=== PATIENT | male | born 1940 | race Caucasian/White ===

== ENCOUNTER 2019-10-18 14:16 | Outpatient (CLI) | payer MEDICARE ==
[~2019-10-18 14:16] MED LIST: ACET-1025 PO; ALPR-624 PO; ASPI-611 PO; BRIM5DRO2 LEFTEYE; DICL-194 PO; FLEC100T PO; FLO0.4C PO; LEVO125T68 PO; LISI-642 PO; METF500T20 PO; MULT-342 PO; OMEP20TA5 PO; POLY17PO10 PO; PSYL1PAC11 PO; SIMV-42 PO; fish oil PO
== END 2019-10-18 23:59 | disposition home or self-care (01) ==
LOC: VAS 14:16
PROVIDERS: ATTEND Pediatrics Sports Medicine
DX: R60.9 Edema, unspecified (principal); I10 Essential (primary) hypertension; E11.9 Type 2 diabetes mellitus without complications
CPT/HCPCS: 93970

== ENCOUNTER 2020-04-03 08:59 | Day surgery (SDC) | payer MEDICARE ==
[~2020-04-03] VITALS: Ht 172.7 cm; Wt 70.5 kg
[~2020-04-03 08:59] MED LIST changes: +METF-900 PO; -METF500T20 PO
[2020-04-03] MEDS ORDERED: fentaNYL/PF 50MCG/1 ML 2ML syringe ONE (09:04)
[2020-04-03] MEDS ORDERED: LIDOcaine Viscous 15ml cup ONE (09:04)
[2020-04-03] MEDS ORDERED: MIDAZolam 5mg/5ml vial ONE (09:04)
[2020-04-03 09:09] VITALS: BP 106/64
[2020-04-03] MEDS ORDERED: DAPA10TA PO (09:33)
[2020-04-03] MEDS ORDERED: GLIM2TAB6 PO (09:34)
[2020-04-03] MEDS ORDERED: ATOR40TA71 PO (09:35)
[2020-04-03] MEDS ORDERED: FINA5TAB11 PO (09:36)
[2020-04-03] MEDS ORDERED: GABA800T11 PO (09:37)
[2020-04-03] MEDS ORDERED: LATONOPROST EACHEYE (09:40)
[2020-04-03] MEDS ORDERED: CELE-193 PO (09:42)
[2020-04-03] MEDS ORDERED: DULO20CA50 PO (09:43)
[2020-04-03] MEDS ORDERED: VITC500T PO (09:45)
[2020-04-03] MEDS ORDERED: FAMO20TA8 PO (09:46)
[2020-04-03] MEDS ORDERED: FLUT16SP2 BOTHNARES (09:46)
[2020-04-03] MEDS ORDERED: CALCIUM PO (09:48)
[2020-04-03] MEDS ORDERED: CHOLECALCIFEROL PO (09:48)
[2020-04-03] MEDS ORDERED: MAGNESIUM PO (09:48)
[2020-04-03] MEDS ORDERED: ZINC PO (09:48)
[2020-04-03] MEDS ORDERED: OMEG1CAP PO (09:49)
[2020-04-03] MEDS ORDERED: [UNRECOGNIZED DRUG - OTHER] (09:50)
[2020-04-03] MEDS ORDERED: MAGN500P34 PO (09:51)
[2020-04-03] MEDS ORDERED: DOCU100C40 PO (09:53)
[2020-04-03 10:30] VITALS: BP 109/65
[2020-04-03 10:40] VITALS: BP 103/57
[2020-04-03 10:50] VITALS: BP 100/62
[2020-04-03 11:00] VITALS: BP 115/58
== END 2020-04-03 11:15 | disposition home or self-care (01) ==
LOC: GI LAB 08:59
PROVIDERS: ATTEND Internal Medicine Gastroenterology
DX: D50.0 Iron deficiency anemia secondary to blood loss (chronic) (principal); K44.9 Diaphragmatic hernia without obstruction or gangrene; K20.8 Other esophagitis; K29.50 Unspecified chronic gastritis without bleeding
CPT/HCPCS: 43239; G0500; J2250; J3010; J7040; 88305; 88312; 88313; 88342; 99152; A4620

== ENCOUNTER 2023-06-02 10:45 | Outpatient (CLI) | payer MEDICARE ==
[~2023-06-02 10:45] MED LIST changes: -ALPR-624 PO; +ATOR40TA71 PO; -BRIM5DRO2 LEFTEYE; +CALCIUM PO; +CELE-193 PO; +CHOLECALCIFEROL PO; +DAPA10TA PO; +DOCU100C40 PO; +DULO20CA50 PO; +FAMO20TA8 PO; +FINA5TAB11 PO; +FLUT16SP2 BOTHNARES; +GABA800T11 PO; +GLIM2TAB6 PO; +LATONOPROST EACHEYE; +MAGN500P34 PO; +MAGNESIUM PO; +OMEG1CAP61 PO; -OMEP20TA5 PO; -SIMV-42 PO; +VITC500T PO; +ZINC PO; +[UNRECOGNIZED DRUG - OTHER]
== END 2023-06-02 23:59 | disposition home or self-care (01) ==
LOC: RAD 10:45
PROVIDERS: ATTEND Internal Medicine
DX: M19.042 Primary osteoarthritis, left hand (principal); M86.8X2 Other osteomyelitis, upper arm
CPT/HCPCS: 73218